=== PATIENT | female | born 1935 | race Caucasian/White ===

== ENCOUNTER 2017-11-16 14:12 | Emergency (ER) | payer MEDICARE ==
[~2017-11-16 14:12] MED LIST: ISOVUE-370 76%-LOCM 1 ML ONE
[2017-11-16 14:53] LABS: #Eosinphils 0.1 thou/uL (0.0-0.7); #Lymphocytes 1.4 thou/uL (1.20-3.40); #Monocytes 0.4 thou/uL (0.11-0.59); #Neutrophils 3.2 thou/uL (1.40-6.50); %Basophils 0.2 % (0.0-1.0); %Lymphocytes 27.2 % (21.0-51.0); %Monocytes 7.7 % (0.0-10.0); %Neutrophils 63.9 % (42.0-75.0); Hemoglobin 13.8 g/dL (12.0-16.0); Mean Corpuscular HGB CONC 34.7 g/dL (32.0-36.0); Mean Corpuscular Hemoglobin 31.6 pg (27.0-31.0); Mean Platelet Volume 8.5 fL (7.4-10.4); Platelet Count 120 thou/uL (130-400); RBC Distribution Width 11.9 % (11.5-14.5); Red Blood Cell (RBC) Count 4.37 mill/uL (4.20-5.40); White Blood Cell (WBC) Count 5.1 thou/uL (4.8-10.8)
[2017-11-16] MEDS ORDERED: Lidocaine Viscous Sol 2% 15 ml UD Cup ONE (15:03)
[2017-11-16] MEDS ORDERED: Mag-Al 1200 mg/1200 mg/30 ML UDCUP ONE (15:04)
[2017-11-16] MEDS ORDERED: Nitroglycerin 2% Ointment 1 INCH/1 GM Packet ONE (15:04)
[2017-11-16 15:06] LABS: ALT (SGPT) 33 U/L (8-55); AST (SGOT) 91 U/L (5-34); Albumin 4.2 g/dL (3.4-4.8); Alkaline Phosphatase 91 U/L (40-150); Anion Gap 16 mmol/L (10-20); BUN (Urea Nitrogen) 12 mg/dL (9.8-20.1); Bilirubin, Total 0.9 mg/dL (0.2-1.2); Calc. Creatinine Clearance 0 mL/min (70-130); Calcium 9.3 mg/dL (7.8-10.44); Carbon Dioxide 24 mmol/L (23-31); Chloride 104 mmol/L (98-107); Estimated GFR-MDRD 64; Globulin 1.9 g/dL (2.4-3.5); Glucose 120 mg/dL (83-110); Potassium 4.3 mmol/L (3.5-5.1); Protein, Total 6.1 g/dL (6.0-8.3); Sodium 140 mmol/L (136-145)
[2017-11-16 15:11] LABS: CKMB 0.5 ng/mL (0-6.6); Troponin I Less than 0.010 ng/mL (< 0.028)
--- NOTE | 2017-11-16 15:31 | RAD ---
FRONTAL VIEW CHEST: Comparison: 04-22-16 Indication: Chest pain. FINDINGS: Cardiac silhouette is accentuated by technique. There is no consolidation, effusion or pneumothorax. Stable calcified nodule of the left lower chest indicating granulomatous calcification. Otherwise, no significant interval change. IMPRESSION: Stable chest, without evidence of focal consolidation. POS: [facility]
[2017-11-16 15:44] LABS: Bilirubin Small (Negative); Blood, Urine Negative (Negative); Clarity CLEAR (Clear); Glucose, Urine (Dipstick) Negative (Negative); Leukocyte Small (Negative); Protein, Urine (Dipstick) Trace mg/dL (Neg-Trace); Specific Gravity, Urine 1.029 (1.002-1.036); pH, Urine 6.5 (5.0-9.0)
[2017-11-16 15:50] LABS: Bacteria/HPF None Seen HPF (None Seen); Hyaline Casts/LPF 0-3 HYALINE CAST LPF (0-3 Hyaline); Pathc Cast-AUWi Flag 0.27 (0-2.49); Squamous Epithelial 0-3 HPF (0-3)
[2017-11-16 15:59] LABS: Nitrite Negative (Negative)
[2017-11-16 16:00] LABS: Renal Epithelial None Seen HPF (0-3); Transitional Epithelial NONE SEEN HPF (0-3)
[2017-11-16] MEDS ORDERED: Ondansetron HCl/PF 4 MG/2 ML Vial ONE (16:15)
--- NOTE | 2017-11-16 16:43 | CT ---
CT ABDOMEN AND PELVIS WITH CONTRAST: HISTORY: Right lower quadrant pain. COMPARISON: CT abdomen and pelvis from04/22/15. FINDINGS: There is some scarring in the lung bases. No pericardial effusion. Prior cholecystectomy. Reservoi r effect extrahepatic biliary system. There is a punctate nonobstructive calculus interpolar right kidney. No hydroureteral nephrosis. No calculus within the urinary bladder. Moderate diverticular disease of sigmoid colon without active inflammation. The appendix is normal. Multiple injection granulomas of the anterior abdomen. Posterior spinal fusion at L4-S1. The L5 scr ews abut the superior end plate. Compression deformity is present at T11, unchanged and chronic. Mild atrophy of the iliopsoas muscle s bilaterally. IMPRESSION: 1. No acute inflammatory process of abdomen or pelvis. 2. Nonobstructive interpolar right renal calculus. 3. Diverticular disease sigmoid colon without active inflammation. POS: [facility]
[2017-11-16 19:00] LABS: Troponin I Less than 0.010 ng/mL (< 0.028)
== END 2017-11-16 19:38 | disposition home or self-care (01) ==
LOC: ERS 14:12
DX: R10.13 Epigastric pain (principal); E78.5 Hyperlipidemia, unspecified; I10 Essential (primary) hypertension; F41.9 Anxiety disorder, unspecified; F32.9 Major depressive disorder, single episode, unspecified; Z79.899 Other long term (current) drug therapy; Z79.82 Long term (current) use of aspirin
CPT/HCPCS: 36415; 71045; 74177; 80053; 81003; 81015; 82553; 83690; 84484; 85025; 93005; 96374; J2405

== ENCOUNTER 2018-03-31 13:52 | Outpatient (CLI) | payer MEDICARE | END 2018-03-31 13:53 | disposition home or self-care (01) | LOC: BICMAMMO 13:52 | PROVIDERS: ATTEND Family Medicine | DX: Z13.820 Encounter for screening for osteoporosis (principal); N63.20 Unspecified lump in the left breast, unspecified quadrant; M85.88 Other specified disorders of bone density and structure, other site; R92.1 Mammographic calcification found on diagnostic imaging of breast | CPT/HCPCS: 76642; 77066; 77080; G0279 ==

== ENCOUNTER 2018-06-09 12:07 | Outpatient (CLI) | payer MEDICARE | END 2018-06-09 12:08 | disposition home or self-care (01) | LOC: BICCT 12:07 | PROVIDERS: ATTEND Family Medicine | DX: R42 Dizziness and giddiness (principal); G31.9 Degenerative disease of nervous system, unspecified; W19.XXXA Unspecified fall, initial encounter | CPT/HCPCS: 70450 ==

== ENCOUNTER 2018-07-18 18:27 | Inpatient (IN) | payer MEDICARE ==
[2018-07-18 19:37] LABS: Hemoglobin 13.4 g/dL (12.0-16.0); Mean Corpuscular HGB CONC 32.7 g/dL (32.0-36.0); Mean Corpuscular Hemoglobin 28.9 pg (27.0-31.0); Mean Corpuscular Volume 88.4 fL (78.0-98.0); Mean Platelet Volume 9.2 fL (7.4-10.4); Platelet Count 94 thou/uL (130-400); RBC Distribution Width 12.1 % (11.5-14.5); Red Blood Cell (RBC) Count 4.62 mill/uL (4.20-5.40); White Blood Cell (WBC) Count 4.8 thou/uL (4.8-10.8)
[2018-07-18 19:43] LABS: #Eosinphils 0.1 thou/uL (0.0-0.7); #Lymphocytes 1.6 thou/uL (1.20-3.40); #Monocytes 0.4 thou/uL (0.11-0.59); #Neutrophils 2.6 thou/uL (1.40-6.50); %Basophils 0.8 % (0.0-1.0); %Eosinophils 1.4 % (0.0-10.0); %Lymphocytes 34.1 % (21.0-51.0); %Monocytes 9.1 % (0.0-10.0); %Neutrophils 54.5 % (42.0-75.0); Large Platelets SLIGHT; MDiff Complete? YES; PLT Morphology Comment Appears Decreased; RBC Morphology Normal
[2018-07-18 19:46] LABS: ALT (SGPT) 28 U/L (8-55); AST (SGOT) 29 U/L (5-34); Alkaline Phosphatase 58 U/L (40-150); Anion Gap 13 mmol/L (10-20); BUN (Urea Nitrogen) 11 mg/dL (9.8-20.1); Bilirubin, Total 0.3 mg/dL (0.2-1.2); Calc. Creatinine Clearance 0 mL/min (70-130); Calcium 8.9 mg/dL (7.8-10.44); Carbon Dioxide 27 mmol/L (23-31); Chloride 108 mmol/L (98-107); Estimated GFR-MDRD 62; Glucose 130 mg/dL (83-110); Lipase 39 U/L (8-78); Potassium 4.1 mmol/L (3.5-5.1); Sodium 144 mmol/L (136-145)
[2018-07-18 19:49] LABS: CKMB 0.6 ng/mL (0-6.6); Troponin I Less than 0.010 ng/mL (< 0.028)
--- NOTE | 2018-07-18 20:28 | RAD ---
PORTABLE CHEST ONE VIEW: 07/18/18 at 7:51 p.m. HISTORY: Chest pain. FINDINGS: Comparison is made with exam dated 11/16/17. The heart is enlarged. No focal areas of consolidation, pneumothoraces, pushpa pulmonary edema or pleu ral effusions are seen. Evidence of old granulomatous disease again seen. IMPRESSION: No acute process. POS: [facility]
[2018-07-18 22:52] VITALS: BMI 33.7
[2018-07-18 23:13] LABS: Troponin I Less than 0.010 ng/mL (< 0.028)
[2018-07-18] MEDS ORDERED: Atropine Sulfate 1 mg/10 ml Syringe ONE (23:26)
[2018-07-19] MEDS ORDERED: Non-Formulary Item 1 EACH (Ranitidine Hcl [Ranitidine Hcl] 150 MG) PO PRN (01:47)
[2018-07-19] MEDS ORDERED: Famotidine 20 MG TAB PO PRN (01:52)
[2018-07-19] MEDS ORDERED: Atropine Sulfate 1 mg/1 ml Vial IVP SCH (02:00)
[2018-07-19 03:03] LABS: Troponin I Less than 0.010 ng/mL (< 0.028)
[2018-07-19 04:45] LABS: #Eosinphils 0.1 thou/uL (0.0-0.7); #Lymphocytes 1.6 thou/uL (1.20-3.40); #Monocytes 0.4 thou/uL (0.11-0.59); #Neutrophils 2.2 thou/uL (1.40-6.50); %Basophils 0.3 % (0.0-1.0); %Eosinophils 1.5 % (0.0-10.0); %Lymphocytes 37.3 % (21.0-51.0); %Monocytes 9.9 % (0.0-10.0); %Neutrophils 51.1 % (42.0-75.0); Mean Corpuscular HGB CONC 33.4 g/dL (32.0-36.0); Mean Corpuscular Hemoglobin 30.2 pg (27.0-31.0); Mean Corpuscular Volume 90.6 fL (78.0-98.0); Platelet Count 109 thou/uL (130-400); RBC Distribution Width 12.3 % (11.5-14.5); Red Blood Cell (RBC) Count 4.29 mill/uL (4.20-5.40); White Blood Cell (WBC) Count 4.4 thou/uL (4.8-10.8)
[2018-07-19 05:04] LABS: Anion Gap 9 mmol/L (10-20); BUN (Urea Nitrogen) 10 mg/dL (9.8-20.1); Calc. Creatinine Clearance 80 mL/min (70-130); Calcium 8.6 mg/dL (7.8-10.44); Carbon Dioxide 27 mmol/L (23-31); Chloride 109 mmol/L (98-107); Estimated GFR-MDRD 70; Glucose 106 mg/dL (83-110); Potassium 3.8 mmol/L (3.5-5.1); Sodium 141 mmol/L (136-145)
[2018-07-19] MEDS: Ondansetron HCl/PF 4 MG/2 ML Vial IVP PRN (05:51)
[2018-07-19] MEDS: Acetaminophen 325 MG TAB PO PRN (05:53)
--- NOTE | 2018-07-19 06:53 | HP ---
PRIMARY CARE PHYSICIAN: Dr. Kvng Tran CODE STATUS: Full code. TIME OF EVALUATION: 11:40 p.m. CHIEF COMPLAINT: Syncope. HISTORY OF PRESENT ILLNESS: This is an 82-year-old female patient with past medical history of hyper lipidemia, hypertension, fibromyalgia, came to the hospital after having an episode of falling backwa rds and when she recovered she remembered that she just passed out. She was able to all the details, after that today she is reporting that she has severe weakness, that was generalized, associated wit h nausea, vomiting, associated with shortness of breath, with no clear triggers or alleviating factor s. Family member also noted that her blood pressure was low and decided to bring her into the hospit al. REVIEW OF SYSTEMS: CONSTITUTIONAL: No fever or chills or generalized weakness. RESPIRATORY: No cough, sputum production, shortness of breath. CARDIOVASCULAR: No chest pain, palpitation. GASTROINTESTINAL: No nausea, vomiting, diarrhea or abdominal pain. STITCH RUBBER: No dizziness, headache, or feeling lightheaded. GENITOURINARY: No burning with urination. EXTREMITIES: No leg swelling. The rest of the review of systems are negative except as for mentioned above. PAST MEDICAL HISTORY: Hyperlipidemia, cholesterol, hypertension, interstitial cystitis, fibromyalgia . PAST SURGICAL HISTORY: Tonsillectomy, cholecystectomy, ____ colon. Appendectomy, hysterectomy, orthopedic surgery, lumbar and cervical x2 in each. PSYCHIATRIC HISTORY: Anxiety, depression. No history of suicidal ideation. No history of homicidal ideation. SOCIAL HISTORY: No alcohol, no drugs, no smoking history. DRUG ALLERGIES: CODEINE and MACROBID. MEDICATIONS: Verapamil, metoprolol, citalopram, alprazolam, baclofen, sucralfate, pravastatin, aspir in, ranitidine, losartan, ampicillin. PHYSICAL EXAMINATION: VITAL SIGNS: On presentation, blood pressure 147/93, heart rate 54, respiratory rate was 18, pain 8, O2 saturation 95 on room air. GENERAL APPEARANCE: The patient is alert, oriented, no acute distress. HEENT: Normocephalic and atraumatic. Anicteric. Moist mucosa. NECK: No JVD. RESPIRATORY: Bilateral air entry. No rales, no wheezing. Symmetric expansion. CARDIOVASCULAR: Normal rate, regular rhythm. No murmurs, no gallop. No edema. ABDOMEN: Soft, normal bowel sounds. MUSCULOSKELETAL: Baseline range of motion and strength. No tenderness. SKIN: Warm and intact. No pallor, no rash or redness. Peripheral pulses are present, regular intac t. NEUROLOGIC: No evidence of any new focal weakness. Baseline. Cranial nerves II through XII are int act. PSYCH: The patient is in a good mood, no anxiety. The EKG as discussed with the performing physician from ER showed the patient has normal sinus rhythm with a rate of 57; however, the patient does have frequent junctional escape rhythms and possible si gns of arrest. RADIOLOGY: Chest film was negative for enlarged heart, otherwise negative. Chest x-ray was reviewed . The patient had no acute process. LABORATORY DATA: Labs were reviewed. White count 4.4, hemoglobin 13, MCV 90.6, platelet count 109. Sodium 144, potassium 3.8, chloride 109, carbon dioxide 27, anion gap 13, BUN 9, creatinine was norm al. GFR 62, glucose 130, came down to 70. Beta natriuretic peptide was 493, troponin was negative x3. ASSESSMENT AND PLAN: The patient will be placed in the hospital with following medical problems: 1. Episode of syncope, unclear etiology, the patient has had possible symptomatic bradycardia. The patient's heart rate drops in the 30s frequently, occasionally without symptoms. We will continue to monitor in ICU with atropine at bedside for symptomatic bradycardia. Patient has been found to be h ypertensive when bradycardic, which should not give her any symptoms. We will consult Cardiology, av oid any beta blockers that the patient was on at home. 2. Uncontrolled hypertension. We will reconcile home medications, will not treat aggressively since the patient is with high risk of bradycardia, hypotension, reconcile home medications. 3. Deep venous thrombosis prophylaxis. 4. Hyperlipidemia, reconcile home meds, low cholesterol diet is a must.
[2018-07-19] MEDS ORDERED: Chloraseptic Spray 180 ml Bottle PO PRN (07:38)
[2018-07-19] MEDS ORDERED: Eucerin (Mineral Oil/Petrolatum,White) 30 gm Jar TOP PRN (07:38)
[2018-07-19] MEDS ORDERED: Artificial Tears 18 DROP/0.9 ML EA EYE PRN (07:38)
[2018-07-19] MEDS ORDERED: Ondansetron ODT 4 MG TAB PO PRN (07:38)
[2018-07-19] MEDS ORDERED: Sodium Chloride 0.65% Nasal 44 ML BOT EA NARE PRN (07:38)
[2018-07-19] MEDS ORDERED: Senokot 8.6 MG TAB PO PRN (07:38)
[2018-07-19] MEDS ORDERED: Zolpidem Tartrate 5 MG TAB PO PRN (07:38)
[2018-07-19] MEDS ORDERED: Loratadine 10 MG TAB PO PRN (07:38)
[2018-07-19] MEDS ORDERED: Diabetic Tussin 200 MG/10 ML UDCUP PO PRN (07:38)
[2018-07-19] MEDS ORDERED: Calcium Carbonate 500 MG ChewTAB PO PRN (07:38)
[2018-07-19] MEDS ORDERED: Milk Of Magnesia 30 ML UDCUP PO PRN (07:38)
[2018-07-19 08:28] LABS: Cardiac Risk 3.9 (Less than 4.5)
--- NOTE | 2018-07-19 08:31 | PDOC.PULCN ---
<KelIsrael - Last Filed: 07/19/18 10:30> Pulmonology Consult: HPI - Date of Consult Date: 07/19/18 Time: 08:00 - Consult Details Reason for Consult: ICU admission Requesting Physician: Barney - History of Present Illness HPI: FERN SINGH is a 82 year-old F w/ PMH of HTN, anxiety, fibromyalgia, recurrent syncopal episodes, interstitial cystitis who [place] [facility] [place] approx 3 month h/o increasing LE weakness, increasing AMEZCUA, LE swelling, palpitations, single episode of chest pressure and occasional syncopal episodes. Pt reports over last 3 mos she has woken up to abdominal pain , nausea and SOB. She also reports frequent syncopal episodes and presyncopal episodes, her most recent syncopal episode being 06/01 for which she was seen and had a CT head performed which was negative for acute intracranial abnormality. She had one episode of chest pressure followed by palpitations approx 1 month ago. She has seen Dr Dunlap in the past for syncopal episodes. Reports she has thought the increasing dizziness, AMEZCUA, and weakness were 2/2 anxiety issues. Denies cp, VDC, fever, chills. Reports some abd bloating, nausea , SOB and weakness. Notably, pt had an isolated episode of syncope apprx 15 years ago in her physicians office for which she had a cardiac cath which she reports was normal. This was done in [place], [place]. Pulmonology Consult: ROS - Review of Systems Constitutional: weakness, malaise. negative: fever, chills Cardiovascular: chest pain, palpitations, edema, light headedness Respiratory: exercise intolerance, short of breath. negative: congestion, cough , productive cough, wheezing Pulmonology Consult: H Source: patient Past Medical History: HTN, fibromyalgia, interstitial cystitis, GERD, anxiety - Social History Smoking Status: Never smoker Alcohol Use: pt denies any use Drug Use History: none Pulmonology Consult: Meds - Medications MAR Reviewed: Yes Medications: Current Medications Acetaminophen (Tylenol) 650 mg PO Q4H PRN PRN Reason: Headache/Fever/Mild Pain (1-3) Last Admin: 07/19/18 05:53 Dose: 650 mg Artificial Tears (Tears Naturale) 0 drop EA EYE PRN PRN PRN Reason: Dry Eyes Aspirin (Aspirin Chewable) 81 mg PO DAILY [facility] Atropine Sulfate (Atropine) 0.5 mg IVP ONE [facility] Stop: 07/29/18 02:01 Calcium Carbonate (Tums) 1,000 mg PO Q4H PRN PRN Reason: Heartburn or Indigestion Citalopram Hydrobromide (Celexa) 20 mg PO DAILY [facility] Enoxaparin Sodium (Lovenox) 40 mg SC 0900 [facility] Famotidine (Pepcid) 20 mg PO DAILYPRN PRN PRN Reason: gerd Guaifenesin (Robitussin Sf) 200 mg PO Q4H PRN PRN Reason: Cough Hydralazine HCl (Apresoline) 10 mg SLOW IVP Q4H PRN PRN Reason: Systolic BP > 180 Loratadine (Claritin) 10 mg PO DAILYPRN PRN PRN Reason: Sinus Symptoms Losartan Potassium (Cozaar) 25 mg PO DAILY [facility] Magnesium Hydroxide (Milk Of Magnesium) 30 ml PO DAILYPRN PRN PRN Reason: Constipation Mineral Oil/White Petrolatum (Eucerin Cream) 0 gm TOP BIDPRN PRN PRN Reason: Dry Skin Ondansetron HCl (Zofran) 4 mg IVP Q6H PRN PRN Reason: Nausea/Vomiting Last Admin: 07/19/18 05:51 Dose: 4 mg Ondansetron HCl (Zofran Odt) 4 mg PO Q6H PRN PRN Reason: Nausea/Vomiting Phenol (Chloraseptic [place] 180 Ml Bot) 0 ml PO PRN PRN PRN Reason: Sore Throat Senna (Senokot) 2 tab PO HSPRN PRN PRN Reason: Constipation Sodium Chloride (Flush - Normal Saline) 10 ml IVF Q12HR [facility] Sodium Chloride (Flush - Normal Saline) 10 ml IVF PRN PRN PRN Reason: Saline Flush Sodium Chloride ([place] Nasal [place] 0.65%) 0 ml EA NARE QIDPRN PRN PRN Reason: Nasal Congestion Sucralfate (Carafate) 1 gm PO QID [facility] Zolpidem Tartrate (Ambien) 5 mg PO HSPRN PRN PRN Reason: Insomnia - Allergies Allergies/Adverse Reactions: Allergies Allergy/AdvReac Type Severity Reaction Status Date / Time codeine Allergy Verified 07/19/18 05:45 nitrofurantoin Allergy Verified 07/19/18 05:45 [From Macrobid] Pulmonology Consult: PE - Physical Exam Constitutional: NAD HEENT: PERRLA, moist MMs, sclera anicteric Neck: no nodes, no JVD Cardiovascular: no significant murmur, no rub Deviation from normal: regular rhythm, bradycardic Respiratory: clear to auscultation bilaterally. negative: chest wall tenderness , decreased breath sounds, prolonged expiratory phase, rales, respiratory distress, rhonchi, wheezes Gastrointestinal: soft, non-tender, no distention, positive bowel sounds Musculoskeletal: edema present (trace LE) Neurological: non-focal, moves all 4 limbs Skin: no rash, normal turgor, cap refill <2 seconds Pulmonology Consult: Results - Labs Result Diagrams: 07/19/18 04:21 07/19/18 04:21 - EKG Data EKG Interpreted by Myself Rate: bradycardia (occasional PACs, ST depression) - Radiology Interpretation Chest x-ray Status: image reviewed by me (cardiomegaly), report reviewed by me Pulmonology Consult: A/P - Problem (1) Bradycardia, drug induced Code(s): R00.1 - BRADYCARDIA, UNSPECIFIED; T50.905A - ADVERSE EFFECT OF UNSP DRUG/MEDS/BIOL SUBST, INIT Status: Acute (2) Elevated brain natriuretic peptide (BNP) level Code(s): R79.89 - OTHER SPECIFIED ABNORMAL FINDINGS OF BLOOD CHEMISTRY Status : Acute (3) Hypertension Code(s): I10 - ESSENTIAL (PRIMARY) HYPERTENSION Status: Chronic (4) Anxiety and depression Code(s): F41.9 - ANXIETY DISORDER, UNSPECIFIED; F32.9 - MAJOR DEPRESSIVE DISORDER, SINGLE EPISODE, UNSPECIFIED Status: Chronic (5) Fibromyalgia Status: Chronic (6) GERD (gastroesophageal reflux disease) Code(s): K21.9 - GASTRO-ESOPHAGEAL REFLUX DISEASE WITHOUT ESOPHAGITIS Status: Chronic - Time Time: 50% of the time was spent in coordination of care (as documented) at patient's floor/unit and/or counseling patient. Time with Patient: greater than 50 minutes - Plan Plan: 1) Bradycardia w/ occasional PACs and ST depression. -cont to monitor closely, pt given single dose of atropine in ED, no other dose needed - rate maintained in 50s, possibly iatrogenic. Possibly [place] 2 block, cards following - cont to monitor - cards consult pending - stable form respiratory standpoint 2) HTN: - home medications include verapamil and coreg, possibly iatrogenic vu; however, r/o other etiology. - Goal BP per age <150/90 - losartan continued, held rate control agents 3) Anxiety/depression -home meds per primary 4) GERD: - mildly decreased plts ranitidine held on pepcid - per primary 5) Elevated BNP: - ECHO pending, cardiomegaly on CXR - no evidence of pulm edema on exam or overt volume overload - stable Dispo: Stable from respiratory standpoint, ok for transfer out of ICU. Cont plan of care. <William Wade - Last Filed: 07/25/18 09:05> Pulmonology Consult: HPI - History of Present Illness HPI: FERN SINGH is a 82 year-old F Pulmonology Consult: Results - Labs Result Diagrams: 07/19/18 04:21 07/19/18 04:21 Pulmonology Consult: A/P - Time Time: 50% of the time was spent in coordination of care (as documented) at patient's floor/unit and/or counseling patient. Attending Addendum - Attending Addendum Date/Time: 07/19/18 1400 I personally evaluated the patient and discussed the management with Dr. Begum. I agree with the History, Examination, Assessment and Plan documented above with any addition or exceptions noted below. 70 minutes have been devoted to this patient in various activities. I personally reviewed all imaging studies and laboratory data noted within this document. For fifty percent of this time, I was interacting with the patient at the bedside or coordinating care with the care team. For the remainder of the time I was immediately available to the patient in the hospital unit.
[2018-07-19] MEDS: Sucralfate 1 GM TAB PO SCH ×5 (09:00→20:03)
[2018-07-19] MEDS ORDERED: Losartan 25 MG TAB PO SCH (09:00)
--- NOTE | 2018-07-19 09:58 | PDOC.PN ---
- Subjective Encounter Start Date: 07/19/18 Encounter Start Time: 07:50 -: old records requested/rev Patient seen and examined. No new complaints. No overnight events - Objective Resuscitation Status: Resuscitation Status FULL:Full Resuscitation MAR Reviewed: Yes Vital Signs & Weight: Vital Signs (12 hours) Temp Pulse Resp BP Pulse Ox 07/19/18 01:53 94 L 07/19/18 01:45 97.7 F 94 17 173/74 H 95 07/18/18 22:30 95 07/18/18 22:05 98.3 F 59 L 16 152/67 H 95 Weight Weight 202 lb 14.4 oz Most Recent Monitor Data Heart Rate from ECG 54 NIBP 165/50 NIBP BP-Mean 116 Respiration from ECG 19 SpO2 91 I&O: 07/18/18 07/19/18 07/20/18 06:59 06:59 06:59 Intake Total 50 Output Total 550 0 Balance -500 0 Result Diagrams: 07/19/18 04:21 07/19/18 04:21 Radiology Reviewed by me: Yes EKG Reviewed by me: Yes (pac, bradycardia) Phys Exam - Physical Examination Constitutional: NAD HEENT: PERRLA, moist MMs, sclera anicteric Neck: no JVD, supple Respiratory: no wheezing, no rales, no rhonchi Cardiovascular: RRR, no significant murmur, no rub Gastrointestinal: soft, non-tender, no distention, positive bowel sounds Musculoskeletal: no edema, pulses present Neurological: non-focal, normal sensation, moves all 4 limbs Lymphatic: no nodes Psychiatric: normal affect, A&O x 3 Skin: no rash, normal turgor Dx/Plan (1) Bradycardia, drug induced Code(s): R00.1 - BRADYCARDIA, UNSPECIFIED; T50.905A - ADVERSE EFFECT OF UNSP DRUG/MEDS/BIOL SUBST, INIT Status: Acute (2) Anxiety and depression Code(s): F41.9 - ANXIETY DISORDER, UNSPECIFIED; F32.9 - MAJOR DEPRESSIVE DISORDER, SINGLE EPISODE, UNSPECIFIED Status: Chronic (3) Dyslipidemia Code(s): E78.5 - HYPERLIPIDEMIA, UNSPECIFIED Status: Chronic (4) Fibromyalgia Status: Chronic (5) GERD (gastroesophageal reflux disease) Code(s): K21.9 - GASTRO-ESOPHAGEAL REFLUX DISEASE WITHOUT ESOPHAGITIS Status: Chronic (6) Hypertension Code(s): I10 - ESSENTIAL (PRIMARY) HYPERTENSION Status: Chronic (7) Obesity (BMI 30-39.9) Code(s): E66.9 - OBESITY, UNSPECIFIED Status: Chronic - Plan cont current plan of care * suspecting bradycardia due to medication * medication reviewed as below * symptomatic treatment * echo will be done * check TSH, lipid profile Review of Systems - Review of Systems ENT: negative: Ear Pain, Ear Discharge, Nose Pain, Nose Discharge, Nose Congestion, Mouth Pain, Mouth Swelling, Throat Pain, Throat Swelling, Other Respiratory: negative: Cough, Dry, Shortness of Breath, Hemoptysis, SOB with Excertion, Pleuritic Pain, Sputum, Wheezing Cardiovascular: negative: chest pain, palpitations, orthopnea, paroxysmal nocturnal dyspnea, edema, light headedness, other Gastrointestinal: negative: Nausea, Vomiting, Abdominal Pain, Diarrhea, Constipation, Melena, Hematochezia, Other Genitourinary: negative: Dysuria, Frequency, Incontinence, Hematuria, Retention , Other Musculoskeletal: negative: Neck Pain, Shoulder Pain, Arm Pain, Back Pain, Hand Pain, Leg Pain, Foot Pain, Other Skin: negative: Rash, Lesions, Woo, Bruising, Other - Medications/Allergies Allergies/Adverse Reactions: Allergies Allergy/AdvReac Type Severity Reaction Status Date / Time codeine Allergy Verified 07/19/18 05:45 nitrofurantoin Allergy Verified 07/19/18 05:45 [From Macrobid] Medications: Current Medications Acetaminophen (Tylenol) 650 mg PO Q4H PRN PRN Reason: Headache/Fever/Mild Pain (1-3) Last Admin: 07/19/18 05:53 Dose: 650 mg Artificial Tears (Tears Naturale) 0 drop EA EYE PRN PRN PRN Reason: Dry Eyes Aspirin (Aspirin Chewable) 81 mg PO DAILY [facility] Atropine Sulfate (Atropine) 0.5 mg IVP ONE [facility] Stop: 07/29/18 02:01 Calcium Carbonate (Tums) 1,000 mg PO Q4H PRN PRN Reason: Heartburn or Indigestion Citalopram Hydrobromide (Celexa) 20 mg PO DAILY [facility] Enoxaparin Sodium (Lovenox) 40 mg SC 0900 [facility] Famotidine (Pepcid) 20 mg PO DAILYPRN PRN PRN Reason: gerd Guaifenesin (Robitussin Sf) 200 mg PO Q4H PRN PRN Reason: Cough Hydralazine HCl (Apresoline) 10 mg SLOW IVP Q4H PRN PRN Reason: Systolic BP > 180 Loratadine (Claritin) 10 mg PO DAILYPRN PRN PRN Reason: Sinus Symptoms Losartan Potassium (Cozaar) 25 mg PO DAILY [facility] Magnesium Hydroxide (Milk Of Magnesium) 30 ml PO DAILYPRN PRN PRN Reason: Constipation Mineral Oil/White Petrolatum (Eucerin Cream) 0 gm TOP BIDPRN PRN PRN Reason: Dry Skin Ondansetron HCl (Zofran) 4 mg IVP Q6H PRN PRN Reason: Nausea/Vomiting Last Admin: 07/19/18 05:51 Dose: 4 mg Ondansetron HCl (Zofran Odt) 4 mg PO Q6H PRN PRN Reason: Nausea/Vomiting Phenol (Chloraseptic [place] 180 Ml Bot) 0 ml PO PRN PRN PRN Reason: Sore Throat Senna (Senokot) 2 tab PO HSPRN PRN PRN Reason: Constipation Sodium Chloride (Flush - Normal Saline) 10 ml IVF Q12HR [facility] Sodium Chloride (Flush - Normal Saline) 10 ml IVF PRN PRN PRN Reason: Saline Flush Sodium Chloride ([place] Nasal [place] 0.65%) 0 ml EA NARE QIDPRN PRN PRN Reason: Nasal Congestion Sucralfate (Carafate) 1 gm PO QID [facility] Zolpidem Tartrate (Ambien) 5 mg PO HSPRN PRN PRN Reason: Insomnia
[2018-07-19] MEDS: Citalopram 20 MG TAB PO SCH (13:40)
[2018-07-19] MEDS: Enoxaparin Sodium 40 MG/0.4 ML SYRINGE SC SCH (13:42)
--- NOTE | 2018-07-19 15:16 | CON ---
DATE OF CONSULTATION: 07/19/2018 REASON FOR CONSULTATION: Bradycardia. HISTORY OF PRESENT ILLNESS: Ms. Manzanares is an 82-year-old woman who has not been seen or evaluated by Cardiology in the past. She recently presented with a low heart rate. She has been on verapamil for over 4 years. Her main complaint has been lightheadedness, dizziness, and syncope. She had asso ciated nausea with some vomiting. No chest pain or pressure noted. She was found to have heart rate in the upper 30s. She is now stable with heart rate in the 50s. PAST MEDICAL HISTORY: Hyperlipidemia, fibromyalgia, hypertension, interstitial cystitis. PAST SURGICAL HISTORY: Tonsillectomy, cholecystectomy, appendectomy, hysterectomy, lumbar surgery. SOCIAL HISTORY: No current tobacco or alcohol use. ALLERGIES: None. HOME MEDICATIONS: Verapamil 180 q.a.m., metoprolol 50 b.i.d., losartan 25 daily, citalopram, ampicil filomena, alprazolam, aspirin, ranitidine, baclofen, and sucralfate. REVIEW OF SYSTEMS: Ten-point review of systems is reviewed and as above, otherwise negative. PHYSICAL EXAMINATION: GENERAL: Patient is a pleasant female who is in no acute distress. The patient appears her stated age. VITAL SIGNS: Blood pressure 188/68, pulse 50, temperature afebrile. NEUROLOGIC: The patient is alert and oriented times 3 with no focal neurologic deficits. HEENT: Sclerae without icterus. Mouth has moist mucous membranes with normal pallor. NECK: No JVD. Carotid upstroke brisk. No bruits bilaterally. LUNGS: Clear to auscultation with unlabored respirations. BACK: No scoliosis or kyphosis. CARDIAC: Regular rate and rhythm with normal S1 and S2. No S3 or S4 noted. No significant rubs, murmurs, thrills, or gallops noted throughout the precordium. PMI is not displaced. There is no parasternal heave. ABDOMEN: Soft, nontender, nondistended. No peritoneal signs present. No hepatosplenomegaly. No abnormal striae. EXTREMITIES: 2+ femoral and 2+ dorsalis pedis pulses. No cyanosis, clubbing, or edema. SKIN: No gross abnormalities. PERTINENT LABS: Hemoglobin 13, creatinine 0.79. EKG showed normal sinus rhythm with nonspecific ST and T-wave changes. IMPRESSION: Bradycardia. RECOMMENDATIONS: Symptoms likely related to beta nixon therapy, calcium channel blockade. At this point, we will stop both. If needed, we can add dobutamine or dopamine, although at this point does not appear to be needed. She is currently asymptomatic. I would recommend controlling blood pressu re by increasing losartan. Consider adding Norvasc. It would be okay from my standpoint to transfer to telemetry monitoring. We will also schedule an outpatient 3-week event recorder.
[2018-07-19] MEDS: hydrALAZINE 20 MG/ML VIAL SLOW IVP PRN (21:00)
[2018-07-19] MEDS ORDERED: Amlodipine 10 MG TAB PO SCH (23:15)
[2018-07-20] MEDS: hydrALAZINE 20 MG/ML VIAL SLOW IVP PRN (03:57)
[2018-07-20] MEDS: Acetaminophen 325 MG TAB PO PRN ×3 (04:46→19:59)
[2018-07-20] MEDS: Sucralfate 1 GM TAB PO SCH ×4 (07:44→19:59)
[2018-07-20] MEDS: Amlodipine 10 MG TAB PO SCH (07:44)
[2018-07-20] MEDS: Losartan 25 MG TAB PO SCH (07:45)
[2018-07-20] MEDS: Citalopram 20 MG TAB PO SCH (07:45)
[2018-07-20] MEDS: Enoxaparin Sodium 40 MG/0.4 ML SYRINGE SC SCH (07:46)
--- NOTE | 2018-07-20 09:26 | PDOC.PN ---
- Subjective Encounter Start Date: 07/20/18 Encounter Start Time: 07:10 pt had good sleep last night, no new complaints, daughter bedside Patient seen and examined. No overnight events - Objective Resuscitation Status: Resuscitation Status FULL:Full Resuscitation MAR Reviewed: Yes Vital Signs & Weight: Vital Signs (12 hours) Temp Pulse Resp BP BP Pulse Ox 07/20/18 07:44 68 128/58 L 07/20/18 04:35 97.3 F L 68 20 150/64 H 94 L 07/20/18 03:57 66 07/20/18 03:21 98.7 F 66 18 181/79 H 95 07/19/18 23:27 64 177/77 H Weight Weight 202 lb 14.4 oz Most Recent Monitor Data Heart Rate from ECG 56 NIBP 155/60 NIBP BP-Mean 76 Respiration from ECG 15 SpO2 98 I&O: 07/19/18 07/20/18 07/21/18 06:59 06:59 06:59 Intake Total 50 1200 Output Total 550 1900 Balance -500 -700 Result Diagrams: 07/19/18 04:21 07/19/18 04:21 Radiology Reviewed by me: Yes (echo reviewed) EKG Reviewed by me: Yes (nsr) Phys Exam - Physical Examination Constitutional: NAD HEENT: PERRLA, moist MMs, sclera anicteric Neck: no JVD, supple Respiratory: no wheezing, no rales, no rhonchi Cardiovascular: RRR, no significant murmur, no rub Gastrointestinal: soft, non-tender, no distention, positive bowel sounds Musculoskeletal: no edema, pulses present Neurological: non-focal, normal sensation, moves all 4 limbs Psychiatric: normal affect, A&O x 3 Skin: no rash, normal turgor Dx/Plan (1) Bradycardia, drug induced Code(s): R00.1 - BRADYCARDIA, UNSPECIFIED; T50.905A - ADVERSE EFFECT OF UNSP DRUG/MEDS/BIOL SUBST, INIT Status: Acute Comment: now resolved (2) Anxiety and depression Code(s): F41.9 - ANXIETY DISORDER, UNSPECIFIED; F32.9 - MAJOR DEPRESSIVE DISORDER, SINGLE EPISODE, UNSPECIFIED Status: Chronic (3) Dyslipidemia Code(s): E78.5 - HYPERLIPIDEMIA, UNSPECIFIED Status: Chronic (4) Fibromyalgia Status: Chronic (5) GERD (gastroesophageal reflux disease) Code(s): K21.9 - GASTRO-ESOPHAGEAL REFLUX DISEASE WITHOUT ESOPHAGITIS Status: Chronic (6) Hypertension Code(s): I10 - ESSENTIAL (PRIMARY) HYPERTENSION Status: Chronic (7) Obesity (BMI 30-39.9) Code(s): E66.9 - OBESITY, UNSPECIFIED Status: Chronic - Plan cont current plan of care, plan discussed w/ family * increase losartan 50 mg po daily, continue amlodipine * today will monitor BP * will need outpt holter monitoring as per cardiology * medication reviewed as below * symptomatic treatment * discussed with daughter bedside. Review of Systems - Review of Systems ENT: negative: Ear Pain, Ear Discharge, Nose Pain, Nose Discharge, Nose Congestion, Mouth Pain, Mouth Swelling, Throat Pain, Throat Swelling, Other Respiratory: negative: Cough, Dry, Shortness of Breath, Hemoptysis, SOB with Excertion, Pleuritic Pain, Sputum, Wheezing Cardiovascular: negative: chest pain, palpitations, orthopnea, paroxysmal nocturnal dyspnea, edema, light headedness, other Gastrointestinal: negative: Nausea, Vomiting, Abdominal Pain, Diarrhea, Constipation, Melena, Hematochezia, Other Genitourinary: negative: Dysuria, Frequency, Incontinence, Hematuria, Retention , Other Musculoskeletal: negative: Neck Pain, Shoulder Pain, Arm Pain, Back Pain, Hand Pain, Leg Pain, Foot Pain, Other Skin: negative: Rash, Lesions, Woo, Bruising, Other - Medications/Allergies Allergies/Adverse Reactions: Allergies Allergy/AdvReac Type Severity Reaction Status Date / Time codeine Allergy Verified 07/19/18 05:45 nitrofurantoin Allergy Verified 07/19/18 05:45 [From Macrobid] Medications: Current Medications Acetaminophen (Tylenol) 650 mg PO Q4H PRN PRN Reason: Headache/Fever/Mild Pain (1-3) Last Admin: 07/20/18 04:46 Dose: 650 mg Amlodipine Besylate (Norvasc) 10 mg PO DAILY [facility] Last Admin: 07/20/18 07:44 Dose: 10 mg Artificial Tears (Tears Naturale) 0 drop EA EYE PRN PRN PRN Reason: Dry Eyes Aspirin (Aspirin Chewable) 81 mg PO DAILY [facility] Last Admin: 07/20/18 07:46 Dose: 81 mg Atropine Sulfate (Atropine) 0.5 mg IVP ONE [facility] Stop: 07/29/18 02:01 Calcium Carbonate (Tums) 1,000 mg PO Q4H PRN PRN Reason: Heartburn or Indigestion Citalopram Hydrobromide (Celexa) 20 mg PO DAILY [facility] Last Admin: 07/20/18 07:45 Dose: 20 mg Enoxaparin Sodium (Lovenox) 40 mg SC 0900 [facility] Last Admin: 07/20/18 07:46 Dose: 40 mg Famotidine (Pepcid) 20 mg PO DAILYPRN PRN PRN Reason: gerd Guaifenesin (Robitussin Sf) 200 mg PO Q4H PRN PRN Reason: Cough Hydralazine HCl (Apresoline) 10 mg SLOW IVP Q4H PRN PRN Reason: Systolic BP > 180 Last Admin: 07/20/18 03:57 Dose: 10 mg Loratadine (Claritin) 10 mg PO DAILYPRN PRN PRN Reason: Sinus Symptoms Losartan Potassium (Cozaar) 50 mg PO DAILY [facility] Last Admin: 07/20/18 07:45 Dose: 50 mg Magnesium Hydroxide (Milk Of Magnesium) 30 ml PO DAILYPRN PRN PRN Reason: Constipation Mineral Oil/White Petrolatum (Eucerin Cream) 0 gm TOP BIDPRN PRN PRN Reason: Dry Skin Ondansetron HCl (Zofran) 4 mg IVP Q6H PRN PRN Reason: Nausea/Vomiting Last Admin: 07/19/18 05:51 Dose: 4 mg Ondansetron HCl (Zofran Odt) 4 mg PO Q6H PRN PRN Reason: Nausea/Vomiting Phenol (Chloraseptic [place] 180 Ml Bot) 0 ml PO PRN PRN PRN Reason: Sore Throat Senna (Senokot) 2 tab PO HSPRN PRN PRN Reason: Constipation Sodium Chloride (Flush - Normal Saline) 10 ml IVF Q12HR [facility] Last Admin: 07/20/18 07:46 Dose: 10 ml Sodium Chloride (Flush - Normal Saline) 10 ml IVF PRN PRN PRN Reason: Saline Flush Sodium Chloride ([place] Nasal [place] 0.65%) 0 ml EA NARE QIDPRN PRN PRN Reason: Nasal Congestion Sucralfate (Carafate) 1 gm PO QID [facility] Last Admin: 07/20/18 07:44 Dose: 1 gm Zolpidem Tartrate (Ambien) 5 mg PO HSPRN PRN PRN Reason: Insomnia
--- NOTE | 2018-07-20 14:07 | PRG ---
DATE OF SERVICE: 07/20/2018 SERVICE: Pulmonary Medicine. INTERVAL HISTORY: The patient is doing really quite well from a respiratory standpoint. She is farzaneh thing comfortably. She has no chest discomfort or shortness of breath. She has not had any signific ant bradyarrhythmias. Otherwise, there has been no interval change to her condition. PHYSICAL EXAMINATION: VITAL SIGNS: Afebrile, pulse 87, blood pressure 157/69, respirations 19, saturation 93% on room air. GENERAL: Patient is awake, alert, in no apparent distress. LUNGS: Excellent air entry. There is no prolonged expiratory phase or wheezing present. HEART: Normal rate, regular. ABDOMEN: Soft, nontender, nondistended. Bowel sounds are positive. MUSCULOSKELETAL: No cyanosis or clubbing. There is no pitting in the bilateral lower extremities. NEUROLOGIC: Grossly nonfocal. IMAGING: Echocardiogram demonstrates normal ejection fraction. There is some diastolic dysfunction and moderate mitral regurgitation. Otherwise, there is no significant pathology there. ASSESSMENT: 1. Bradycardia, drug induced. 2. Hypertension. At this point, the patient is doing absolutely fantastic from a respiratory standpoint. Her heart ra te is actually back up without the rate controlling medications. She has no further requirements for inpatient Pulmonary or Critical Care opinion, and I will sign off. Please call with additional ques tions or concerns moving forward.
--- NOTE | 2018-07-20 21:02 | PRG ---
DATE OF SERVICE: 07/20/2018 SUBJECTIVE: Ms. Manzanares is doing better. Heart rate is stable. She is 50-60s. Her blood pressure has been elevated. PHYSICAL EXAMINATION: VITAL SIGNS: Blood pressure 143/64, pulse , temperature 97.9. LUNGS: Clear to auscultation. CARDIAC: Regular rate and rhythm. ABDOMEN: Soft, nontender, nondistended. EXTREMITIES: No edema. IMPRESSION: 1. Bradycardia - likely secondary to medical therapy. She was on calcium channel nixon and beta b locker. These now have been discontinued and she is stable. Would now recommend an event recorder. 2. Hypertension - blood pressure appears stable on current medical therapy. She is on amlodipine in addition to losartan. 3. From my standpoint, I have no recommendations. I would recommend a followup with me in the next 1-2 weeks. Okay for discharge from a CV standpoint.
[2018-07-20] MEDS: Ondansetron HCl/PF 4 MG/2 ML Vial IVP PRN (22:26)
[2018-07-21] MEDS: Acetaminophen 325 MG TAB PO PRN ×2 (00:01→13:47)
[2018-07-21] MEDS ORDERED: ALPRAZolam 0.5 MG TAB PO SCH (00:45)
[2018-07-21] MEDS: ALPRAZolam 0.5 MG TAB PO SCH ×2 (12:15→20:27)
[2018-07-21] MEDS: Amlodipine 10 MG TAB PO SCH (12:15)
[2018-07-21] MEDS: Sucralfate 1 GM TAB PO SCH ×4 (12:16→20:27)
[2018-07-21] MEDS: Enoxaparin Sodium 40 MG/0.4 ML SYRINGE SC SCH (12:16)
[2018-07-21] MEDS: Citalopram 20 MG TAB PO SCH (12:16)
[2018-07-21] MEDS: Losartan 25 MG TAB PO SCH (12:16)
--- NOTE | 2018-07-21 14:41 | PDOC.PN ---
- Subjective Encounter Start Date: 07/21/18 Encounter Start Time: 07:50 pt's BP is variable, today has headche, feels dizziness and tinnitus Patient seen and examined. - Objective Resuscitation Status: Resuscitation Status FULL:Full Resuscitation MAR Reviewed: Yes Vital Signs & Weight: Vital Signs (12 hours) Temp Pulse Resp BP Pulse Ox 07/21/18 12:15 75 07/21/18 08:00 98.4 F 75 18 172/75 H 94 L Weight Weight 202 lb 14.4 oz Most Recent Monitor Data Heart Rate from ECG 56 NIBP 155/60 NIBP BP-Mean 76 Respiration from ECG 15 SpO2 98 I&O: 07/20/18 07/21/18 07/22/18 06:59 06:59 06:59 Intake Total 1200 720 Output Total 1900 1200 Balance -700 -480 Result Diagrams: 07/19/18 04:21 07/19/18 04:21 EKG Reviewed by me: Yes (nsr) Phys Exam - Physical Examination Constitutional: NAD HEENT: PERRLA, moist MMs, sclera anicteric Neck: no JVD, supple Respiratory: no wheezing, no rales, no rhonchi Cardiovascular: RRR, no significant murmur, no rub Gastrointestinal: soft, non-tender, no distention, positive bowel sounds Musculoskeletal: no edema, pulses present Neurological: non-focal, normal sensation, moves all 4 limbs Psychiatric: normal affect, A&O x 3 Skin: no rash, normal turgor Dx/Plan (1) Bradycardia, drug induced Code(s): R00.1 - BRADYCARDIA, UNSPECIFIED; T50.905A - ADVERSE EFFECT OF UNSP DRUG/MEDS/BIOL SUBST, INIT Status: Acute Comment: now resolved (2) Anxiety and depression Code(s): F41.9 - ANXIETY DISORDER, UNSPECIFIED; F32.9 - MAJOR DEPRESSIVE DISORDER, SINGLE EPISODE, UNSPECIFIED Status: Chronic (3) Dyslipidemia Code(s): E78.5 - HYPERLIPIDEMIA, UNSPECIFIED Status: Chronic (4) Fibromyalgia Status: Chronic (5) GERD (gastroesophageal reflux disease) Code(s): K21.9 - GASTRO-ESOPHAGEAL REFLUX DISEASE WITHOUT ESOPHAGITIS Status: Chronic (6) Hypertension Code(s): I10 - ESSENTIAL (PRIMARY) HYPERTENSION Status: Chronic (7) Obesity (BMI 30-39.9) Code(s): E66.9 - OBESITY, UNSPECIFIED Status: Chronic (8) Vertigo Code(s): R42 - DIZZINESS AND GIDDINESS Status: Acute (9) Elevated brain natriuretic peptide (BNP) level Code(s): R79.89 - OTHER SPECIFIED ABNORMAL FINDINGS OF BLOOD CHEMISTRY Status : Acute Comment: due to diastolic dysfunction - Plan cont current plan of care, plan discussed w/ family * will get MRI brain today * will add antivert 25 mg po bid PRN * add hydralazine 25 mg po bid for HTN * medication reviewed as below * symptomatic treatment * discussed with daughter bedside. Review of Systems - Review of Systems Eyes: negative: Pain, Vision Change, Conjunctivae Inflammation, Eyelid Inflammation, Redness, Other ENT: negative: Ear Pain, Ear Discharge, Nose Pain, Nose Discharge, Nose Congestion, Mouth Pain, Mouth Swelling, Throat Pain, Throat Swelling, Other Respiratory: negative: Cough, Dry, Shortness of Breath, Hemoptysis, SOB with Excertion, Pleuritic Pain, Sputum, Wheezing Cardiovascular: light headedness. negative: chest pain, palpitations, orthopnea , paroxysmal nocturnal dyspnea, edema, other Gastrointestinal: negative: Nausea, Vomiting, Abdominal Pain, Diarrhea, Constipation, Melena, Hematochezia, Other Genitourinary: negative: Dysuria, Frequency, Incontinence, Hematuria, Retention , Other Musculoskeletal: negative: Neck Pain, Shoulder Pain, Arm Pain, Back Pain, Hand Pain, Leg Pain, Foot Pain, Other Skin: negative: Rash, Lesions, Woo, Bruising, Other - Medications/Allergies Allergies/Adverse Reactions: Allergies Allergy/AdvReac Type Severity Reaction Status Date / Time codeine Allergy Verified 07/19/18 05:45 nitrofurantoin Allergy Verified 07/19/18 05:45 [From Macrobid] Medications: Current Medications Acetaminophen (Tylenol) 650 mg PO Q4H PRN PRN Reason: Headache/Fever/Mild Pain (1-3) Last Admin: 07/21/18 00:01 Dose: 650 mg Alprazolam (Xanax) 0.5 mg PO BID [facility] Last Admin: 07/21/18 12:15 Dose: Not Given Amlodipine Besylate (Norvasc) 10 mg PO DAILY [facility] Last Admin: 07/21/18 12:15 Dose: Not Given Artificial Tears (Tears Naturale) 0 drop EA EYE PRN PRN PRN Reason: Dry Eyes Aspirin (Aspirin Chewable) 81 mg PO DAILY [facility] Last Admin: 07/21/18 12:15 Dose: Not Given Atropine Sulfate (Atropine) 0.5 mg IVP ONE [facility] Stop: 07/29/18 02:01 Calcium Carbonate (Tums) 1,000 mg PO Q4H PRN PRN Reason: Heartburn or Indigestion Citalopram Hydrobromide (Celexa) 20 mg PO DAILY [facility] Last Admin: 07/21/18 12:16 Dose: Not Given Enoxaparin Sodium (Lovenox) 40 mg SC 0900 [facility] Last Admin: 07/21/18 12:16 Dose: Not Given Famotidine (Pepcid) 20 mg PO DAILYPRN PRN PRN Reason: gerd Guaifenesin (Robitussin Sf) 200 mg PO Q4H PRN PRN Reason: Cough Hydralazine HCl (Apresoline) 10 mg SLOW IVP Q4H PRN PRN Reason: Systolic BP > 180 Last Admin: 07/20/18 03:57 Dose: 10 mg Loratadine (Claritin) 10 mg PO DAILYPRN PRN PRN Reason: Sinus Symptoms Losartan Potassium (Cozaar) 50 mg PO DAILY [facility] Last Admin: 07/21/18 12:16 Dose: Not Given Magnesium Hydroxide (Milk Of Magnesium) 30 ml PO DAILYPRN PRN PRN Reason: Constipation Mineral Oil/White Petrolatum (Eucerin Cream) 0 gm TOP BIDPRN PRN PRN Reason: Dry Skin Ondansetron HCl (Zofran) 4 mg IVP Q6H PRN PRN Reason: Nausea/Vomiting Last Admin: 07/20/18 22:26 Dose: 4 mg Ondansetron HCl (Zofran Odt) 4 mg PO Q6H PRN PRN Reason: Nausea/Vomiting Phenol (Chloraseptic [place] 180 Ml Bot) 0 ml PO PRN PRN PRN Reason: Sore Throat Senna (Senokot) 2 tab PO HSPRN PRN PRN Reason: Constipation Sodium Chloride (Flush - Normal Saline) 10 ml IVF Q12HR [facility] Last Admin: 07/21/18 12:16 Dose: Not Given Sodium Chloride (Flush - Normal Saline) 10 ml IVF PRN PRN PRN Reason: Saline Flush Sodium Chloride ([place] Nasal [place] 0.65%) 0 ml EA NARE QIDPRN PRN PRN Reason: Nasal Congestion Sucralfate (Carafate) 1 gm PO QID [facility] Last Admin: 07/21/18 12:16 Dose: Not Given Zolpidem Tartrate (Ambien) 5 mg PO HSPRN PRN PRN Reason: Insomnia
[2018-07-21] MEDS ORDERED: Gadobenate Dimeglumine 529 MG/1 ML (20ML VIAL) ONE (15:10)
--- NOTE | 2018-07-21 17:01 | MRI ---
MRI BRAIN WITH AND WITHOUT CONTRAST: INDICATIONS: Vertigo. Frequent falls with headache. CORRELATION: Recent CT from 06/09/2018. TECHNIQUE: Multiplanar, multisequential imaging of the brain obtained. Post contrast images were obtained with the administration of 15 mL of MultiHance IV. FINDINGS: Mild cortical volume loss. There is ventriculomegaly, which appears more prominent than the degree o f atrophy. Mild chronic ischemic white matter changes noted on FLAIR sequence. There is no evidence of restricted diffusion. No mass or edema seen. No abnormal enhancement identified. The intracranial internal carotid arteries and proximal cerebral arteries show flow voids. The basil ar artery is patent. The dual-venous sinuses appear IMPRESSION: 1. There is mild cortical volume loss with ventriculomegaly. The ventriculomegaly appears slightly disproportionate to the degree of atrophy. Consider normal pressure hydrocephalus. 2. Mild chronic ischemic changes. 3. No acute infarct. POS: [facility]
[2018-07-22] MEDS: Amlodipine 10 MG TAB PO SCH (09:31)
[2018-07-22] MEDS: Sucralfate 1 GM TAB PO SCH ×4 (09:32→21:37)
[2018-07-22] MEDS: Citalopram 20 MG TAB PO SCH (09:32)
[2018-07-22] MEDS: Losartan 25 MG TAB PO SCH (09:32)
[2018-07-22] MEDS: Acetaminophen 325 MG TAB PO PRN ×2 (09:33→21:37)
[2018-07-22] MEDS: ALPRAZolam 0.5 MG TAB PO SCH ×2 (09:33→21:37)
[2018-07-22] MEDS: Enoxaparin Sodium 40 MG/0.4 ML SYRINGE SC SCH (09:41)
--- NOTE | 2018-07-22 21:13 | PDOC.PN ---
- Subjective Encounter Start Date: 07/22/18 Encounter Start Time: 10:00 Subjective: pt up in bed no complains - Objective Resuscitation Status: Resuscitation Status FULL:Full Resuscitation Vital Signs & Weight: Vital Signs (12 hours) Pulse BP 07/22/18 09:31 76 179/77 H Weight Weight 202 lb 14.4 oz Most Recent Monitor Data Heart Rate from ECG 56 NIBP 155/60 NIBP BP-Mean 76 Respiration from ECG 15 SpO2 98 I&O: 07/21/18 07/22/18 07/23/18 06:59 06:59 06:59 Intake Total 444 004 7883 Output Total 1200 1100 Balance -480 -460 1800 Result Diagrams: 07/19/18 04:21 07/19/18 04:21 Phys Exam - Physical Examination Neck: no nodes, no JVD, supple, full ROM Respiratory: no wheezing, no rales, no rhonchi, wheezing present, clear to auscultation bilateral Cardiovascular: RRR, no significant murmur, no rub, gallop, irregular Gastrointestinal: soft, non-tender, no distention, positive bowel sounds Dx/Plan (1) Bradycardia, drug induced Code(s): R00.1 - BRADYCARDIA, UNSPECIFIED; T50.905A - ADVERSE EFFECT OF UNSP DRUG/MEDS/BIOL SUBST, INIT Status: Acute Comment: now resolved (2) Hypertension Code(s): I10 - ESSENTIAL (PRIMARY) HYPERTENSION Status: Chronic (3) Obesity (BMI 30-39.9) Code(s): E66.9 - OBESITY, UNSPECIFIED Status: Chronic (4) Anxiety and depression Code(s): F41.9 - ANXIETY DISORDER, UNSPECIFIED; F32.9 - MAJOR DEPRESSIVE DISORDER, SINGLE EPISODE, UNSPECIFIED Status: Chronic - Plan spoke with pt she will follow up with nerurology on 08/01 for her MRI brain -: will add another bp meds. pt will need outpatient PT eval -: will discharge in am * . Review of Systems - Review of Systems Cardiovascular: negative: chest pain, palpitations, orthopnea, paroxysmal nocturnal dyspnea, edema, light headedness, other Gastrointestinal: negative: Nausea, Vomiting, Abdominal Pain, Diarrhea, Constipation, Melena, Hematochezia, Other Genitourinary: negative: Dysuria, Frequency, Incontinence, Hematuria, Retention , Other - Medications/Allergies Allergies/Adverse Reactions: Allergies Allergy/AdvReac Type Severity Reaction Status Date / Time codeine Allergy Verified 07/19/18 05:45 nitrofurantoin Allergy Verified 07/19/18 05:45 [From Macrobid] Medications: Current Medications Acetaminophen (Tylenol) 650 mg PO Q4H PRN PRN Reason: Headache/Fever/Mild Pain (1-3) Last Admin: 07/22/18 09:33 Dose: 650 mg Alprazolam (Xanax) 0.5 mg PO BID [facility] Last Admin: 07/22/18 09:33 Dose: 0.5 mg Amlodipine Besylate (Norvasc) 10 mg PO DAILY [facility] Last Admin: 07/22/18 09:31 Dose: 10 mg Artificial Tears (Tears Naturale) 0 drop EA EYE PRN PRN PRN Reason: Dry Eyes Aspirin (Aspirin Chewable) 81 mg PO DAILY [facility] Last Admin: 07/22/18 09:33 Dose: 81 mg Atropine Sulfate (Atropine) 0.5 mg IVP ONE [facility] Stop: 07/29/18 02:01 Calcium Carbonate (Tums) 1,000 mg PO Q4H PRN PRN Reason: Heartburn or Indigestion Citalopram Hydrobromide (Celexa) 20 mg PO DAILY [facility] Last Admin: 07/22/18 09:32 Dose: 20 mg Enoxaparin Sodium (Lovenox) 40 mg SC 0900 [facility] Last Admin: 07/22/18 09:41 Dose: 40 mg Famotidine (Pepcid) 20 mg PO DAILYPRN PRN PRN Reason: gerd Guaifenesin (Robitussin Sf) 200 mg PO Q4H PRN PRN Reason: Cough Hydralazine HCl (Apresoline) 10 mg SLOW IVP Q4H PRN PRN Reason: Systolic BP > 180 Last Admin: 07/20/18 03:57 Dose: 10 mg Hydralazine HCl (Apresoline) 25 mg PO DAILY [facility] Loratadine (Claritin) 10 mg PO DAILYPRN PRN PRN Reason: Sinus Symptoms Losartan Potassium (Cozaar) 50 mg PO DAILY [facility] Last Admin: 07/22/18 09:32 Dose: 50 mg Magnesium Hydroxide (Milk Of Magnesium) 30 ml PO DAILYPRN PRN PRN Reason: Constipation Last Admin: 07/21/18 17:29 Dose: 30 ml Mineral Oil/White Petrolatum (Eucerin Cream) 0 gm TOP BIDPRN PRN PRN Reason: Dry Skin Ondansetron HCl (Zofran) 4 mg IVP Q6H PRN PRN Reason: Nausea/Vomiting Last Admin: 07/20/18 22:26 Dose: 4 mg Ondansetron HCl (Zofran Odt) 4 mg PO Q6H PRN PRN Reason: Nausea/Vomiting Phenol (Chloraseptic [place] 180 Ml Bot) 0 ml PO PRN PRN PRN Reason: Sore Throat Senna (Senokot) 2 tab PO HSPRN PRN PRN Reason: Constipation Sodium Chloride (Flush - Normal Saline) 10 ml IVF Q12HR [facility] Last Admin: 07/22/18 10:20 Dose: Not Given Sodium Chloride (Flush - Normal Saline) 10 ml IVF PRN PRN PRN Reason: Saline Flush Sodium Chloride ([place] Nasal [place] 0.65%) 0 ml EA NARE QIDPRN PRN PRN Reason: Nasal Congestion Sucralfate (Carafate) 1 gm PO QID [facility] Last Admin: 07/22/18 17:32 Dose: 1 gm Zolpidem Tartrate (Ambien) 5 mg PO HSPRN PRN PRN Reason: Insomnia
[2018-07-22] MEDS ORDERED: hydrALAZINE 25 MG TAB PO SCH (21:30)
[2018-07-22] MEDS: hydrALAZINE 25 MG TAB PO SCH (21:38)
[2018-07-23] MEDS: Amlodipine 10 MG TAB PO SCH (08:47)
[2018-07-23] MEDS: ALPRAZolam 0.5 MG TAB PO SCH (08:47)
[2018-07-23] MEDS: Citalopram 20 MG TAB PO SCH (08:48)
[2018-07-23] MEDS: Enoxaparin Sodium 40 MG/0.4 ML SYRINGE SC SCH (08:48)
[2018-07-23] MEDS: hydrALAZINE 25 MG TAB PO SCH (08:49)
[2018-07-23] MEDS: Losartan 25 MG TAB PO SCH (08:49)
[2018-07-23] MEDS: Sucralfate 1 GM TAB PO SCH ×3 (08:49→17:32)
[2018-07-23 17:31] VITALS: BP 161/79; TEMP 98.1
--- NOTE | 2018-07-23 22:14 | DIS ---
DATE OF ADMISSION: 07/19/2018 DATE OF DISCHARGE: 07/23/2018 DISCHARGE DIAGNOSES: As of the following, 1. Syncope/bradycardia secondary to medication induced. 2. Hypertension. 3. Obesity. 4. Anxiety and depression. HOSPITAL COURSE: The patient is a very pleasant 82-year-old female who initially presented to the [facility] after having a syncopal episode at home and at this time in the ER was found to have a heart r ate in the 30s. She initially was admitted to the ICU and Cardiology was consulted. She was taking verapamil and was on a beta nixon which was discontinued. She was seen by Cardiology who recommend ed bradycardia secondary to medical therapy. Recommended to follow up for an event recorder which th e patient and the daughter have been notified about. She also had an echocardiogram which indicated an EF of 55%-60%. The left atrium have mild to moderate dilation. Otherwise, everything else appear ed to be normal. She also had a brain MRI, which indicated mild cortical volume loss and ventriculom egaly and also had some atrophy. There was some concern for possible normal pressure hydrocephalus. The patient was walked by physical therapy. She has been seen Neurology as an outpatient and has an appointment with Neurology on the and she was given a prescription to get an MRI brain which wa s already done in the hospital. I did recommend the patient to follow up with Neurology in concerns of the findings of normal pressure hydrocephalus. Patient was walked with physical therapy. She did well. Physical therapy recommended [facility] which also the neurologist had recommended. Joshua robledo is on vitamin B12 also and further recommendations per Neurology. During her hospital stay, her bl ood pressure was slightly elevated. I had to adjust her medications. She will be sent home with Hannah exa 20 mg daily, Xanax 0.5 b.i.d. p.r.n., aspirin 81 mg daily, ranitidine 150 daily p.r.n., baclofen 10 mg q.i.d. p.r.n., sucralfate 1 gram p.o. q.i.d., hydralazine 25 daily, losartan 25 mg b.i.d., and amlodipine 10 mg daily. PHYSICAL EXAMINATION: VITAL SIGNS: Temperature of 98.0, 78, 16, 94% on room air, 155/70. GENERAL: She is awake, alert, oriented x3, does not appear in distress. CARDIOVASCULAR: S1, S2 present. No murmurs, rubs or gallops. ABDOMEN: Soft, nontender. Bowel sounds are present x2. EXTREMITIES: No edema. Again she was asked to follow up with her primary care next week with Dr. Dunlap, Neurology and she has an appointment on 08/01/2018. She also was supposed to call for an appointment for her [facility] as outpatient PT. She also was recommended to check her blood pressure at home and take that reading to her primary care doctor in case they need to adjust her medications and again her bradyca rdia, most likely secondary to medication induced. She will also need an event monitor from Cardiolo gy.
--- NOTE | 2018-07-25 18:03 | PQF ---
[employer] Crystal Reports Winform ViewerCLEPHOEBE,TALON MENDES [id number] CLINICAL DOCUMENTATION CLARIFICATION FORM: POST DISCHARGE Please exercise your independent, professional judgment in responding to the clarification form. Clinical indicators are provided on the bottom of this form for your review Please check appropriate box(s): DIASTOLIC DYSFUNCTION: [ x] Chronic Diastolic Heart failure [ ] Diastolic Dysfunction without heart failure [ ] Other diagnosis [ ] Unable to determine In addition, please specify: Present on Admission (POA): [ x] Yes [ ] No [ ] Unable to determine For continuity of documentation, please document condition throughout progress notes and discharge summary. Thank You. Present Clinical Indicators - Signs / Symptoms / Labs Results and Location in Medical Record [ x ] Ejection Fraction = 55-60% 07/19/18 ECHO report [ X] Elevated BNP 07/18 493.9 [ X] Dyspnea, Hypoxia 07/19 pulmonary consult, "increasing AMEZCUA, LE swelling" [ X ] "suggestive of diastolic dysfunction" 07/19/18 ECHO report Present Risk Factors Results and Location in Medical Record [ X] Hypertension H&P 07/19 [X] cardiomegaly cardiomegaly noted on 07/18 chest x-ray Present Treatments Results and Location in Medical Record [X] monitoring outpatient 3-week event recorder [ X ] Cardiac consult 07/19 consult (This form is maintained as a part of the permanent medical record) 2014 [employer] All Rights Reserved Dorene [email or web address] [phone] ALFONSO
== END 2018-07-23 18:16 | disposition home health service (06) | DRG 309 ==
LOC: SCSER 18:27 → 2NO 21:49 → CCU 07-19 01:53 → 2NO 07-19 19:53
PROVIDERS: ADMIT Hospitalist; ATTEND Hospitalist
DX: R00.1 Bradycardia, unspecified (principal); G91.2 (Idiopathic) normal pressure hydrocephalus; I50.32 Chronic diastolic (congestive) heart failure; I11.0 Hypertensive heart disease with heart failure; T46.1X5A Adverse effect of calcium-channel blockers, initial encounter; R55 Syncope and collapse; R06.02 Shortness of breath; R79.89 Other specified abnormal findings of blood chemistry; E78.5 Hyperlipidemia, unspecified; K21.9 Gastro-esophageal reflux disease without esophagitis; N30.10 Interstitial cystitis (chronic) without hematuria; I34.0 Nonrheumatic mitral (valve) insufficiency; M79.7 Fibromyalgia; E66.9 Obesity, unspecified; F41.8 Other specified anxiety disorders; Z68.33 Body mass index [BMI] 33.0-33.9, adult; Z79.82 Long term (current) use of aspirin; Z79.899 Other long term (current) drug therapy; Z79.2 Long term (current) use of antibiotics; Z88.1 Allergy status to other antibiotic agents; Z88.8 Allergy status to other drugs, medicaments and biological substances
CPT/HCPCS: 36415; 70553; 71045; 80048; 80053; 80061; 82553; 83690; 83735; 83880; 84443; 84484; 85025; 93005; 93010; 93306; A9579; G8978-GP-CL; G8979-GP-CJ; J0360; J0461; J1650; J2405

== ENCOUNTER 2019-06-19 12:26 | Outpatient (CLI) | payer MEDICARE ==
--- NOTE | 2019-06-19 13:47 | ULT ---
US Thyroid STANDARD History: Thyroid nodule Comparison: None. Findings: Real-time grayscale and color evaluation of the thyroid was performed. Isthmus measures 2 mm in AP dimension. Right lobe measures 4.2 x 2.4 x 1.8 cm and the left lobe measu res 3.3 x 1.3 x 0.9 cm. Multiple colloid cysts throughout the thyroid which do not require aspiration or follow-up per TIRADS criteria. Largest spongiform nodule in the right lobe measures up to 2 cm in size. There is a hypoechoic wider than tall solid nodule measuring 0.6 x 0.3 x 0.4 cm in the interpolar lef t lobe without echogenic foci. This is TIRADS 3: Mildly suspicious. Given its small size, no follow-up or aspiration is recommended. Also within the left lobe near the inferior pole is a 0.7 x 0.6 x 0.4 cm solid hypoechoic wider than tall nodule with lobular margins without echogenic foci. This is TIRADS 4: Moderately suspicious. Given its small size, no aspiration or follow-up is required. Impression: Multiple colloid cysts and small nodules which do not require aspiration or follow-up per TIRADS criteria.
== END 2019-06-19 12:27 | disposition home or self-care (01) ==
LOC: BICULT 12:26
PROVIDERS: ATTEND Physical Medicine & Rehabilitation
DX: E04.2 Nontoxic multinodular goiter (principal)
CPT/HCPCS: 76536

== ENCOUNTER 2019-08-27 12:27 | Outpatient (CLI) | payer MEDICARE ==
--- NOTE | 2019-08-27 14:03 | MMO ---
Bilateral MAMMO Bilat Diag DDI+JOSE. CLINICAL HISTORY: Patient is 84 years old and is seen for diagnostic exam,lump or thickening and pain in the left breast. The patient has no family history of breast cancer. The patient has no personal history of cancer. VIEWS: The views performed were: bilateral craniocaudal with tomosynthesis; bilateral mediolateral oblique with tomosynthesis; and bilateral mediolateral with tomosynthesis. FILMS COMPARED: The present examination has been compared to prior imaging studies performed at [facility] on 01/20/2017, 03/31/2018 and 08/27/2019, and at [facility] on 04/04/2013. This study has been interpreted with the assistance of computer-aided detection. MAMMOGRAM FINDINGS: There are scattered fibroglandular densities. There are no suspicious masses, suspicious calcifications, or new areas of architectural distortion. IMPRESSION: THERE IS NO MAMMOGRAPHIC EVIDENCE OF MALIGNANCY. A ROUTINE FOLLOW-UP MAMMOGRAM IN 1 YEAR IS RECOMMENDED. THE RESULTS OF THIS EXAM WERE SENT TO THE PATIENT. ACR BI-RADS Category 1 - Negative MAMMOGRAPHY NOTE: 1. A negative mammogram report should not delay a biopsy if a dominant of clinically suspicious mass is present. 2. Approximately 10% to 15% of breast cancers are not detected by mammography. 3. Adenosis and dense breasts may obscure an underlying neoplasm. Reported by: Aletha LY Electonically Signed: [id number]
--- NOTE | 2019-08-27 15:34 | ULT ---
ULTRASOUND LEFT BREAST: HISTORY: Palpable abnormality. COMPARISON: Mammogram from same day. FINDINGS: No abnormality at the left breast besides a normal band of breast tissue. No mass. IMPRESSION: BIRADS 2: Benign findings. POS: OFF
--- NOTE | 2019-08-27 15:36 | RAD ---
Cervical spine 3 views: 08/27/2019 COMPARISON: None HISTORY: Cervical spine pain FINDINGS: Anterior discectomy and fusion hardware present at C4-5. There is degenerative change at the atlantoaxial interspace. There is disc space narrowing and anteri or osteophyte formation at C2-3 and C3-4. Open-mouth odontoid view is unremarkable. Multilevel disc space fusion changes noted throughout the mid and lower cervical spine. No prevertebral soft tissue swelling. Multilevel facet and uncovertebral osteophyte formation noted o n frontal imaging throughout the cervical spine. There is atherosclerotic calcification of the aortic arch. IMPRESSION: Postoperative and degenerative changes within the cervical spine as detailed above.
== END 2019-08-27 12:28 | disposition home or self-care (01) ==
LOC: BICMAMMO 12:27
PROVIDERS: ATTEND Family Medicine
DX: M54.2 Cervicalgia (principal); N63.0 Unspecified lump in unspecified breast; M47.812 Spondylosis without myelopathy or radiculopathy, cervical region; Z98.890 Other specified postprocedural states
CPT/HCPCS: 72040; 76642; 77066; G0279

== ENCOUNTER 2020-02-16 17:14 | Emergency (ER) | payer MEDICARE ==
[2020-02-16 18:15] LABS: #Eosinphils 0.1 thou/uL (0.0-0.7); #Lymphocytes 1.5 thou/uL (1.20-3.40); #Monocytes 0.4 thou/uL (0.11-0.59); #Neutrophils 3.1 thou/uL (1.40-6.50); %Basophils 0.3 % (0.0-1.0); %Eosinophils 1.5 % (0.0-10.0); %Lymphocytes 29.4 % (21.0-51.0); %Monocytes 7.7 % (0.0-10.0); %Neutrophils 61.1 % (42.0-75.0); Hemoglobin 14.2 g/dL (12.0-16.0); Mean Corpuscular HGB CONC 33.5 g/dL (32.0-36.0); Mean Corpuscular Hemoglobin 30.8 pg (27.0-31.0); Mean Corpuscular Volume 91.9 fL (78.0-98.0); Mean Platelet Volume 8.5 fL (7.4-10.4); Platelet Count 123 thou/uL (130-400); RBC Distribution Width 11.8 % (11.5-14.5); Red Blood Cell (RBC) Count 4.61 mill/uL (4.20-5.40); White Blood Cell (WBC) Count 5.1 thou/uL (4.8-10.8)
--- NOTE | 2020-02-16 18:16 | RAD ---
Chest one view HISTORY: Palpitations. COMPARISON: 07/18/2018. FINDINGS: Cardiac silhouette is magnified by projection. Pulmonary vasculature is unremarkable. Mediastinum is midline with aortic calcification. No lobar consolidation or evidence of pneumothorax. Calcified granulomata are consistent with healed granulomatous disease. IMPRESSION : No active cardiopulmonary abnormalities are demonstrated. Atherosclerosis.
[2020-02-16 18:38] LABS: ALT (SGPT) 17 U/L (8-55); AST (SGOT) 19 U/L (5-34); Albumin 4.5 g/dL (3.4-4.8); Alkaline Phosphatase 57 U/L (40-110); Anion Gap 14 mmol/L (10-20); BUN (Urea Nitrogen) 19 mg/dL (9.8-20.1); Bilirubin, Total 0.5 mg/dL (0.2-1.2); Calc. Creatinine Clearance 0 mL/min (70-130); Calcium 9.8 mg/dL (7.8-10.44); Carbon Dioxide 28 mmol/L (23-31); Chloride 103 mmol/L (98-107); Estimated GFR-MDRD 60; Globulin 2.2 g/dL (2.4-3.5); Glucose 127 mg/dL (83-110); Potassium 3.9 mmol/L (3.5-5.1); Protein, Total 6.7 g/dL (6.0-8.3); Sodium 141 mmol/L (136-145)
[2020-02-16 19:53] LABS: Bilirubin Negative (Negative); Blood, Urine Negative (Negative); Clarity Turbid (Clear); Glucose, Urine (Dipstick) Normal (Negative); Leukocyte 500 Leu/uL (Negative); Nitrite Negative (Negative); Protein, Urine (Dipstick) Negative (Neg-Trace); RBC/HPF 0-3 HPF (0-3); Squamous Epithelial None Seen HPF (0-3); Urobilinogen Normal mg/dL (Less than 2); WBC/HPF 21-50 HPF (0-3)
[2020-02-16 19:54] LABS: Bacteria/HPF 2+ HPF (None Seen)
[2020-02-16] MEDS ORDERED: Aspirin Chewable 81 MG TAB ONE (19:54)
[2020-02-16] MEDS ORDERED: ALPRAZolam 0.25 MG TAB ONE (19:59)
--- NOTE | 2020-02-23 12:44 | EKG ---
Test Reason : Blood Pressure : / mmHG Vent. Rate : 084 BPM Atrial Rate : 084 BPM P-R Int : 178 ms QRS Dur : 076 ms QT Int : 376 ms P-R-T Axes : 020 084 070 degrees QTc Int : 444 ms Normal sinus rhythm with sinus arrhythmia Septal infarct , age undetermined Abnormal ECG Confirmed by NICK BOURGEOIS M.D. ([id number]), magazine editor HOLLIS BUTT ([id number]) on 02/23/2020 12:43:40 PM Referred By: Confirmed By:NICK BOURGEOIS M.D.
== END 2020-02-16 20:30 | disposition home or self-care (01) ==
LOC: ERS 17:14
DX: R00.2 Palpitations (principal); N39.0 Urinary tract infection, site not specified; E78.5 Hyperlipidemia, unspecified; E78.00 Pure hypercholesterolemia, unspecified; I10 Essential (primary) hypertension; M79.7 Fibromyalgia; F41.9 Anxiety disorder, unspecified; F32.9 Major depressive disorder, single episode, unspecified; Z79.899 Other long term (current) drug therapy; Z79.82 Long term (current) use of aspirin
CPT/HCPCS: 71045; 80053; 81003; 81015; 84443; 84484; 85025; 93005; 94760